=== PATIENT | female | born 1955 | race Caucasian/White ===

== ENCOUNTER 2021-12-07 10:08 | Day surgery (SDC) | payer OTHER ==
--- NOTE | 2021-11-30 09:51 | HP ---
DATE OF SURGERY: 12/07/2021 HISTORY OF PRESENT ILLNESS: The patient is a 66-year-old female who presents with cholelithiasis. It appears that the patient has had some symptoms over the past two to three years. The patient does have some reflux at times. It looks like the patient has been scoped with EGD to rule out any process. PAST MEDICAL HISTORY: Gastroesophageal reflux disease, reflux, hyperlipidemia. PAST SURGICAL HISTORY: Colonoscopy, liver biopsy. ALLERGIES: NKDA. MEDICATIONS: Lovastatin, pantoprazole, FAMILY HISTORY: None reported. SOCIAL HISTORY: None reported. REVIEW OF SYSTEMS: CONSTITUTIONAL: Denies fever or chills. CHEST: Denies shortness of breath. CVS: Denies chest pain. ABDOMEN: Reports upper abdominal pain. Denies nausea, vomiting, diarrhea, constipation or rectal bleeding. PHYSICAL EXAMINATION: GENERAL: No acute distress. CHEST: Nonlabored. No shortness of breath. CVS: Regular rate and rhythm. ABDOMEN: Soft, nontender. IMPRESSION: Symptomatic cholelithiasis. PLAN: Laparoscopic cholecystectomy with Dr. Jose Carlos Lepe. As dictated by Rajwinder Jewell NP.
[~2021-12-07 10:08] MED LIST: Lactated Ringers 1,000 ML IV ONE; Lactated Ringers 1,000 ML IV SCH; MEFOXIN 2 GM PREMIX** 2 GM/50 ML ML IV SCH; Sensorcaine 0.25% 10 ML ONE
[2021-12-07] MEDS ORDERED: Ephedrine Sulfate 50 MG/ML IJ ONE (10:09)
[2021-12-07] MEDS ORDERED: Lactated Ringers 1,000 ML IV ONE (10:16)
[2021-12-07] MEDS ORDERED: MEFOXIN 2 GM PREMIX** 2 GM/50 ML ML IV ONE (10:16)
[2021-12-07] MEDS ORDERED: Zofran 4 MG/2 ML VIAL ONE (12:06)
[2021-12-07] MEDS ORDERED: DIPRIVAN 200 MG/20 ML IV ONE (12:06)
[2021-12-07] MEDS ORDERED: Zemuron 100 MG/10 ML ONE (12:06)
[2021-12-07] MEDS ORDERED: Quelicin Fliptop 200 MG/10 ML ONE (12:06)
[2021-12-07] MEDS ORDERED: Decadron 4 MG INJ ONE (12:06)
[2021-12-07] MEDS ORDERED: Xylocaine-Mpf 2% 5 Ml Vial ONE (12:11)
[2021-12-07] MEDS ORDERED: SUBLIMAZE 100 MCG/2 ML ONE ×2 (12:12→13:27)
[2021-12-07] MEDS ORDERED: OFIRMEV 100 ML IV ONE (12:28)
[2021-12-07] MEDS ORDERED: Pre-Attached Lta Kit TP ONE (12:28)
[2021-12-07] MEDS ORDERED: Versed 2 MG/2 ML Injection ONE (12:35)
[2021-12-07] MEDS ORDERED: APRESOLINE 20 MG/ML INJ ONE (13:00)
[2021-12-07] MEDS ORDERED: BRIDION 200MG/2ML IV ONE (13:12)
[2021-12-07] MEDS ORDERED: Hydromorphone 1 mg/ml Injection ONE ×2 (13:28→14:00)
--- NOTE | 2021-12-07 13:34 | OP ---
SURGERY DATE/TIME: 12/07/2021 1234 PREOPERATIVE DIAGNOSIS: Symptomatic cholelithiasis. POSTOPERATIVE DIAGNOSIS: Symptomatic cholelithiasis. PROCEDURE: Laparoscopic cholecystectomy. SURGEON: Dr. Jose Carlos Lepe. ANESTHESIA: General endotracheal tube. COMPLICATIONS: None. CONDITION: Stable. INDICATIONS: A patient with symptomatic stones. DESCRIPTION OF PROCEDURE AND FINDINGS: Taken to surgery. General anesthetic, routine prep and drape. Substantial adhesions with white coated density omentum, bowel and the duodenum. It is all taken down. Fairly large gallbladder. Fairly thin gallbladder. Infundibulum narrowed into a 6 mm cystic duct. Common bile duct was a little more medial and looked a little large about 1 cm. Cystic artery both anterior and posterior branches taken with clips. The infundibulum totally dissected onto cystic duct. At this point it was taken with staple device. It was slightly wide, 6 mm. It was totally by itself for a centimeter there. Staple line looked excellent. Gallbladder rolled out of gallbladder fossa. Gallbladder delivered through the epigastric port that had been exchanged up to a 12. Hole closure device was used and this was closed. The field was dry. CO2 exsufflated. Skin closed with 4-0 Vicryl and Steri-Strips. The patient tolerated the procedure satisfactorily.
[2021-12-07] MEDS ORDERED: NORCO 5/325 MG PO PRN (14:30)
[2021-12-07 15:05] VITALS: O2SAT 94
[2021-12-07 15:22] VITALS: BP 148/76; PULSE 79
== END 2021-12-07 15:25 | disposition home or self-care (01) ==
LOC: SDC 10:08
PROVIDERS: ATTEND Surgery
DX: K80.20 Calculus of gallbladder without cholecystitis without obstruction (principal)
CPT/HCPCS: J0330; J0360; J0694; J1100; J1170; J2250; J2405; J2704; J3010; A9270-GY